=== PATIENT | male | born 1950 | race Caucasian/White ===

== ENCOUNTER 2019-06-13 11:59 | Day surgery (SDC) | payer MEDICARE ==
[2019-06-12 17:05] VITALS: BMI 25.5
[~2019-06-13 11:59] MED LIST: Lidocaine 1% PF 5 ML VIAL ONE; PHENYLEPHRINE-NS 100 MCG/ML 10 ML SYRINGE ONE; PROPOFOL 200 MG/20 ML VIAL ONE; ePHEDrine/0.9% NaCl/PF SYRINGE 50 mg/10 ml ONE
[2019-06-13 13:37] LABS: #Basophils 0.1 thou/uL (0.0-0.2); #Eosinphils 0.7 thou/uL (0.0-0.7); #Lymphocytes 3.9 thou/uL (1.20-3.40); #Monocytes 0.9 thou/uL (0.11-0.59); #Neutrophils 7.7 thou/uL (1.40-6.50); %Basophils 0.8 % (0.0-1.0); %Eosinophils 5.5 % (0.0-10.0); %Lymphocytes 29.2 % (21.0-51.0); %Monocytes 6.9 % (0.0-10.0); %Neutrophils 57.7 % (42.0-75.0); Hemoglobin 15.9 g/dL (14.0-18.0); Mean Corpuscular HGB CONC 33.2 g/dL (32.0-36.0); Mean Corpuscular Hemoglobin 31.2 pg (27.0-31.0); Mean Corpuscular Volume 94.1 fL (78.0-98.0); Mean Platelet Volume 6.8 fL (7.4-10.4); Platelet Count 299 thou/uL (130-400); RBC Distribution Width 11.6 % (11.5-14.5); Red Blood Cell (RBC) Count 5.09 mill/uL (4.70-6.10); White Blood Cell (WBC) Count 13.3 thou/uL (4.8-10.8)
[2019-06-13 13:58] LABS: Anion Gap 11 mmol/L (10-20); BUN (Urea Nitrogen) 13 mg/dL (8.4-25.7); Calc. Creatinine Clearance 104 mL/min (70-130); Calcium 9.6 mg/dL (7.8-10.44); Carbon Dioxide 32 mmol/L (23-31); Chloride 101 mmol/L (98-107); Estimated GFR-MDRD Greater than 90; Glucose 145 mg/dL (80-115); Potassium 5.2 mmol/L (3.5-5.1); Sodium 139 mmol/L (136-145)
[2019-06-13] MEDS ORDERED: Midazolam HCl 2 mg/2 ml Vial ONE (18:55)
[2019-06-13] MEDS ORDERED: Fentanyl 100 MCG/2 ML VIAL ONE (18:55)
[2019-06-13] MEDS ORDERED: Bupivacaine PF 0.5% 30 ML VIAL ONE (19:17)
[2019-06-13] MEDS ORDERED: Bacitracin Zinc Ointment 30 gm TUBE ONE (19:46)
[2019-06-13] MEDS ORDERED: HYDROcodone/Acetaminophen 5/325 mg Tablet ONE (20:45)
--- NOTE | 2019-06-14 01:56 | OP ---
DATE OF PROCEDURE: 06/13/2019 PREOPERATIVE DIAGNOSES: Open distal phalanx fracture with tuft, possible nail bed laceration. FINDINGS: Nail bed laceration with nail edges invaginated inside the space with hematoma of the fracture separation distal phalanx tip. PROCEDURES PERFORMED: 1. Debridement of material associated with open fracture, left distal phalanx small finger. 2. Nail bed repair. 3. Open reduction with internal fixation using K-wires, distal phalanx fracture. COMPLICATIONS: None. TOURNIQUET TIME: None. ESTIMATED BLOOD LOSS: Less than 5 cc. C-ARM USED: Yes. INDICATIONS: The patient with 2-day-old open fracture, had initial wound care and on evaluation in clinic, the flap of skin with the laceration was intact, but there was radiographic and clinical evidence of possible nail bed complex laceration with separation of the nail bed into the fracture line which would create problems later, thus operative intervention was indicated. DESCRIPTION OF PROCEDURE: After successful general LMA technique, the limb was prepped and draped. The patient had time-out done appropriately and we then prepared for procedure. We elevated the nail gently. Here, we saw the invagination of the nail bed into the laceration with approximately a 3 mm tip of nail bed distal to the laceration. We then gently removed the hematoma after removing the nail from the laceration area, sutured the part on the soft tissue to help align the bone, then realized there was nail tissue left. We were then able to affect the outcome. Once we finished the debridement, under C-arm supervision, the K-wire was passed and we had excellent open reduction. The nail bed was repaired, which was over the entire distance of the nail approaching excellent alignment. Then, we had finished the debridement of material associated with open fracture, finished the K-wire fixation and open treatment with internal fixation and now we had sutured the nail bed with 6-0 chromic. We had placed two 5-0 chromics in the previously closed wounds and we placed two 5-0 nylons in previously closed wound to augment that fixation. There was no gross motion in the fracture site and the patient left the operating room without evidence of anesthetic or operative complication. Job ID: [id number]
--- NOTE | 2019-06-16 08:27 | RAD ---
FINGERS LEFT HAND: Date: 06/13/19 Two fluoroscopic views presented from OR. INDICATION: Open reduction and internal fixation left fifth finger. FINDINGS/IMPRESSION: These views demonstrate pin transfixing the distal phalanx of the fifth finger of left hand. POS: VANESSA
== END 2019-06-13 21:07 | disposition home or self-care (01) ==
LOC: SDC 11:59
PROVIDERS: ATTEND Orthopaedic Surgery Hand Surgery
PROC: 0PSV04Z Reposition Left Finger Phalanx with Internal Fixation Device, Open Approach (ICD-10-PCS; principal; 2019-06-13)
PROC: 0HQQXZZ Repair Finger Nail, External Approach (ICD-10-PCS; 2019-06-13)
DX: S62.639B Displaced fracture of distal phalanx of unspecified finger, initial encounter for open fracture (principal); Z79.4 Long term (current) use of insulin; Z79.82 Long term (current) use of aspirin; Z79.899 Other long term (current) drug therapy
CPT/HCPCS: 36415; 36416; 76000; 80048; 85025; 93005; 93010; J0690; J2001; J2250; J2704; J3010; S0020